=== PATIENT | male | born 1965 | race Caucasian/White ===

== ENCOUNTER 2022-06-10 08:24 | Outpatient (CLI) | payer BC, SELFPAY | END 2022-06-10 08:25 | disposition home or self-care (01) | PROVIDERS: PCP Family Medicine; Visit Provider Family Medicine | DX: Z00.00 Encounter for general adult medical examination without abnormal findings (principal); E11.9 Type 2 diabetes mellitus without complications; E78.1 Pure hyperglyceridemia; I10 Essential (primary) hypertension; R73.03 Prediabetes; Z11.59 Encounter for screening for other viral diseases; Z79.899 Other long term (current) drug therapy | CPT/HCPCS: 80053; 80061; 82043; 82570; 82607; 84156; 86803 ==

== ENCOUNTER 2023-08-12 06:51 | Outpatient (CLI) | payer BC, SELFPAY | END 2023-08-12 06:52 | disposition home or self-care (01) | PROVIDERS: PCP Family Medicine; Visit Provider Family Medicine | DX: E78.1 Pure hyperglyceridemia (principal); I10 Essential (primary) hypertension; E11.65 Type 2 diabetes mellitus with hyperglycemia; Z13.29 Encounter for screening for other suspected endocrine disorder; Z12.5 Encounter for screening for malignant neoplasm of prostate; Z79.84 Long term (current) use of oral hypoglycemic drugs | CPT/HCPCS: 80053; 80061; 82043; 82570; 82607; 84443; G0103 ==

== ENCOUNTER 2024-12-06 07:01 | Outpatient (CLI) | payer BC, SELFPAY | END 2024-12-06 07:02 | disposition home or self-care (01) | PROVIDERS: PCP Family Medicine; Visit Provider Family Medicine | DX: Z12.5 Encounter for screening for malignant neoplasm of prostate (principal); E11.9 Type 2 diabetes mellitus without complications; E78.1 Pure hyperglyceridemia; I10 Essential (primary) hypertension | CPT/HCPCS: 80053; 80061; 82043; 82570; G0103 ==

== ENCOUNTER 2024-12-27 07:02 | Outpatient (CLI) | payer BC, SELFPAY ==
--- NOTE | 2024-12-27 08:52 | P.ANES_ITS ---
Anesthesia Charges Start Date/Time Anesthesia Start Date: 12/27/24 Anesthesia Start Time: 08:16 Stop Date/Time Anesthesia Stop Date: 12/27/24 Anesthesia Stop Time: 08:51 Coding CPT Codes CPT Codes: ANES LWR INTST NDSC NOS - [id number] ([id number]) P3 - PATIENT W/SEVERE SYS DISEASE, QK - RIP MACHINE OPERATOR 2-4 CNCRNT ANES PROC, QX - JIG BORER SVC W/ MD MED DIRECTION
--- NOTE | 2024-12-27 08:52 | W.ANESCHARGE ---
Anesthesia Charges Start Date/Time Anesthesia Start Date: 12/27/24 Anesthesia Start Time: 08:16 Stop Date/Time Anesthesia Stop Date: 12/27/24 Anesthesia Stop Time: 08:51 Coding CPT Codes CPT Codes: ANES LWR INTST NDSC NOS - [id number] ([id number]) P3 - PATIENT W/SEVERE SYS DISEASE, QK - SUPERINTENDENT BUILDING 2-4 CNCRNT ANES PROC, QX - RESPIRATORY MANAGER SVC W/ MD MED DIRECTION
--- NOTE | 2024-12-27 09:57 | P.ANES_ITS ---
Anesthesia Charges Start Date/Time Anesthesia Start Date: 12/27/24 Anesthesia Start Time: 08:16 Stop Date/Time Anesthesia Stop Date: 12/27/24 Anesthesia Stop Time: 08:51 Coding CPT Codes CPT Codes: ANES LWR INTST NDSC NOS - [id number] ([id number]) QK - DIVISION ROAD SUPERVISOR 2-4 CNCRNT ANES PROC, QX - VIROLOGY TEACHER SVC W/ MED DIRECTION, P3 - PATIENT W/SEVERE SYS DISEASE
--- NOTE | 2024-12-27 09:57 | W.ANESCHARGE ---
Anesthesia Charges Start Date/Time Anesthesia Start Date: 12/27/24 Anesthesia Start Time: 08:16 Stop Date/Time Anesthesia Stop Date: 12/27/24 Anesthesia Stop Time: 08:51 Coding CPT Codes CPT Codes: ANES LWR INTST NDSC NOS - [id number] ([id number]) QK - PIE MAKER MACHINE 2-4 CNCRNT ANES PROC, QX - MATH INTERVENTIONIST SVC W/ MED DIRECTION, P3 - PATIENT W/SEVERE SYS DISEASE
== END 2024-12-27 07:03 | disposition home or self-care (01) ==
PROVIDERS: PCP Family Medicine; Visit Provider Surgery
DX: Z12.11 Encounter for screening for malignant neoplasm of colon (principal); D12.4 Benign neoplasm of descending colon; K57.30 Diverticulosis of large intestine without perforation or abscess without bleeding
CPT/HCPCS: 00811; 00812; 45385; 88305; J2704